=== PATIENT | male | born 1960 | race Caucasian/White ===

== ENCOUNTER 2024-12-11 13:19 | Outpatient (AMB) | payer OTHER, SELFPAY ==
--- NOTE | 2024-12-11 13:39 | A.OFFPC_ITS ---
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 Required: No Accompanied by: Self / Same As Patient Allergies No Known Drug Allergies Allergy (Verified 12/11/24 13:54) Unknown Medication List - Last Reconciled 12/11/24 by Dorothy Dupont MD aspirin (Adult Low Dose Aspirin) 81 mg PO DAILY diazepam 2 mg PO BEDTIME PRN losartan 25 mg PO BID multivitamin 0.5 tabs PO DAILY propranolol 20 mg PO BID Tobacco use date assessed: 12/11/24 Dental Screening Dental Screen Date: 12/11/24 Did you have a dental visit in the last 12 months?: Yes Did you have a dental problem in the last 6 months where you did not have access to dental care?: No PFSH Medical History (Updated 12/11/24 @ 14:29 by Dorothy Dupont MD) Low back pain TIA (transient ischemic attack) Heart murmur Hypertension Surgical History (Updated 12/11/24 @ 13:59 by DOT Aranda) No pertinent past surgical history Family History (Updated 12/11/24 @ 14:13 by Dorothy Dupont MD) Mother Heart problem Dementia Kidney cancer, primary, with metastasis from kidney to other site Father Heart problem Hip joint replacement by other means Myocardial infarct Social History (Updated 12/11/24 @ 14:15 by Dorothy Dupont MD) Housing: Apartment Alcohol intake: never Patient Tobacco Use Status: Former Tobacco user Tobacco use type: Cigarette Years Smoked: pack / week x20 years quit 1999. marijuana Substance Use Type: Marijuana service: No Current occupational status: retired Cognitive needs: No Hearing needs: No Vision needs: Yes Questionnaire PHQ-9 Over the last 2 weeks, how often have you been bothered by any of the following problems? 1. Little interest or pleasure in doing things: not at all 2. Feeling down, depressed, or hopeless: not at all 3. Trouble falling or staying asleep, or sleeping too much: not at all 4. Feeling tired or having little energy: not at all 5. Poor appetite or overeating: not at all 6. Feeling bad about yourself - or that you are a failure or have let yourself or your family down: not at all 7. Trouble concentrating on things, such as reading the newspaper or watching television: not at all 8. Moving or speaking so slowly that other people could have noticed. Or the opposite - being so fidgety or restless that you have been moving around a lot more than usual: not at all 9. Thoughts that you would be better off or of hurting yourself in some way: not at all Total score: 0 Source: Developed by Drs. Guzman Bronson, Arlin Carreno, Dimitri Sanz and colleagues, with an educational maricel from [facility]. Thrive Questionnaire Date Thrive assessed: 12/09/24 I am a: Patient What is your living situation today?: I have a steady place to live Within the past 12 months, did the food you bought not last and you didn't have the money to get more?: Sometimes True Within the past 12 months, did you worry whether your food would run out before you got money to buy more?: Sometimes True Do you have trouble paying for medicines?: Yes Do you have trouble getting transportation to medical appointments?: No Do you have trouble paying your heating and electricity bill?: No Do you have trouble taking care of your child, family member or friend?: I choose not to answer this question Do you have trouble with day-to-day activities such as bathing, preparing meals, shopping, managing finances, etc.?: No Are you currently unemployed and looking for a job?: No Are you interested in more education?: No Currently or been in a relationship where the following occur: No concerns reported THRIVE Score: 2 AUDIT C Alcohol Use Questionnaire (AUDIT-C) 1. How often do you have a drink containing alcohol?: Never 3. How often do you have six or more drinks on one occasion?: Never Total Score: 0 CHRISTEN-7 AMB Questionnaire CHRISTEN-7 Feeling nervous, anxious, or on edge: 1 = Several days Not being able to stop or control worryin = Several days Worrying too much about different things: 1 = Several days Trouble relaxin = Several days Being so restless that it is hard to sit still: 0 = Not at all Becoming easily annoyed or irritable: 1 = Several days Feeling afraid as if something awful might happen: 0 = Not at all Total CHRISTEN-7 score (0-4 normal; 5-9 mild; 10-14 moderate; 15-21 severe): 5 Source: Developed by Drs. Guzman Bronson, Arlin Carreno, Dimitri Sanz and colleagues, with an educational maricel from [facility]. Physical exam (Primary Care) Vital Signs: Last Vital Signs Temp 97.6 F 12/11/24 13:49 Pulse 64 12/11/24 13:49 Resp 16 12/11/24 13:49 BP 146/80 H 12/11/24 13:49 Pulse Ox 98 12/11/24 13:49 Oxygen Delivery Method Room Air 12/11/24 13:49 BMI result Body Mass Index 32.2 Tobacco/Smoking Status: Tobacco use Status Tobacco use date assessed 12/11/24 12/11/24 14:02 Patient Tobacco Use Status Former Tobacco user 12/11/24 14:15 Tobacco use type Cigarette 12/11/24 14:15 PHQ-9: PHQ-9 Score PHQ-9: Total score 0 12/11/24 14:19 Thrive Assessment: Date of Thrive Assessment Date Thrive assessed 12/09/24 12/11/24 13:39 Currently or been in a relationship where the following occur: No concerns reported Const General: alert; No acute distress Eyes Conjunctivae: conjunctivae normal Resp Auscultation: clear to auscultation bilaterally Cardio Rate: regular rate Rhythm: regular rhythm GI Inspection: Yes normal to inspection Extrem General: Yes normal to inspection and No edema Coding Level of Care Code New Pt Level 4 (43658) Diagnoses Hypertension I10 Heart murmur R01.1 Generalized anxiety disorder F41.1 Obesity (BMI 30.0-34.9) E66.811 Migraine G43.909 Colonoscopy refused Z53.20 Left ankle pain M25.572 Shoulder pain, left M25.512 Assessment & Plan Assessment & Plan (1) Hypertension: Code(s): I10 - Essential (primary) hypertension Category: Medical Plan: monitor the BP (2) Heart murmur: Code(s): R01.1 - Cardiac murmur, unspecified (3) Generalized anxiety disorder: Code(s): F41.1 - Generalized anxiety disorder Category: Medical (4) Obesity (BMI 30.0-34.9): Code(s): E66.811 - Obesity, class 1 Category: Medical (5) Migraine: Comment: visual Code(s): G43.909 - Migraine, unspecified, not intractable, without status migrainosus Category: Medical (6) Colonoscopy refused: Code(s): Z53.20 - Procedure and treatment not carried out because of patient's decision for unspecified reasons Category: Medical (7) Left ankle pain: Code(s): M25.572 - Pain in left ankle and joints of left foot Category: Medical (8) Shoulder pain, left: Code(s): M25.512 - Pain in left shoulder Category: Medical Plan History of Present Illness The patient is a 64-year-old male presenting with essential hypertension management. Despite adherence to Losartan 25 mg twice daily, his blood pressure readings remain elevated under stress. Notably, he lacks a home monitoring system. Obesity is a comorbidity, and he struggles with sleep disturbances, requiring occasional diazepam. A congenital heart murmur and mitral valve prolapse are present. He experienced TIA-like episodes in his 40s, possibly linked to migraines. Unresolved left ankle swelling and left shoulder numbness are present. No recent lumbar interventions for reported past hyperextended nerves. Hemorrhoids treated conservatively without colonoscopy. Health Maintenance - Regular monitoring of blood pressure at home suggested. - Discussion of colonoscopy for colorectal cancer screening, despite patient's reluctance. - Encouragement to maintain adequate hydration (6-8 glasses/day). - Update on flu and COVID vaccinations acknowledged. - Discussed potential benefits and side effects of shingles vaccines. Social History - Former occasional smoker, quit in 2021. - Current use of marijuana through smoking. - Vegetarian diet with occasional vitamin supplementation. - Engages in gardening; physically active when possible. - No alcohol consumption. - Reported elevated stress levels impacting sleep. Review of Systems - Cardiovascular: Reports history of mitral valve prolapse. - Musculoskeletal: Reports left ankle joint pain and swelling, shoulder numbness. - Neurological: Reports transient ischemic attack in the past, migraines with visual auras, and insomnia. - Gastrointestinal: Reports hemorrhoids. - Psychological: Experiences insomnia and negative thoughts impacting sleep. - Dermatological: Denies rash or skin abnormalities. Physical Exam General: Cooperative, healthy appearing, comfortable, no acute distress and well developed Orientation: Patient oriented x3 Limitations: No limitations Head: Normal to inspection Ears: Hearing grossly normal bilaterally Nose: Normal external nose present Face and sinus: Normal facial exam Eyes: Appearance normal, both eyes and all related structures Neck: Normal visual inspection and Yes full ROM Respiratory: Normal respiratory effort and able to speak in complete sentences. Clear to auscultation bilaterally Cardiovascular: Regular rate and rhythm. Normal S1 and S2, presence of a squeaky mitral valve prolapse GI: Normal to inspection. Soft to palpation and nontender Skin: No rashes or lesions noted Neuro: Patient oriented x3 Extremities: Swelling noted in the left ankle, painful to touch, with numbness from the shoulder down the arm on the left side. Results Plan The management of the patient's essential hypertension includes home monitoring and stress-reduction techniques, while maintaining his current Losartan regimen. An X-ray is advised for the left ankle swelling, with neurological assessment due to the left shoulder numbness. Physical therapy is recommended for musculoskeletal symptoms as availability permits. For insomnia, will consider reducing diazepam use in favor of non-pharmacological sleep aids. Colon cancer screening alternatives discussed given patient reluctance to undergo colonoscopy. Vaccination status maintained with discussions on shingles vaccine, and blood work ordered to evaluate for anemia. Patient was informed and verbally consented to the use of an ambient scribe for clinic note documentation during this visit. Discussion Notes I discussed with the patient the significance of maintaining controlled blood pressure and the potential benefits of home monitoring. I highlighted the importance of managing stress, which exacerbates his elevated blood pressures. We reviewed the plan for blood work and additional evaluations, such as an X-ray for the left ankle and neurological assessment for numbness. Proposed physical therapy should aid musculoskeletal issues. We examined the role of sleep aids and the risks of prolonged diazepam use. Addressed reluctance for colonoscopy, and explored alternative screening like Cologuard. Vaccination updates noted, with shingles immunization encouraged. Patient informed about potential anemia signs, and a complete blood count as part of necessary diagnostic steps. Reinforced recommendations for a healthy lifestyle and sufficient hydration. Patient Instructions - Monitor blood pressure at home regularly and record the readings. - Maintain current medication regimen with Losartan. - Schedule and attend a left ankle X-ray. - Consider physical therapy for shoulder numbness and musculoskeletal issues. - Explore non-pharmacological options for insomnia; limit diazepam use. - Stay current with vaccinations, particularly shingles. - Drink 6-8 glasses of water daily. - Follow a balanced, vegetarian diet and stay physically active when possible. - Attend follow-up visits as scheduled and seek medical advice for any unusual symptoms or concerns. Orders: Orders Complete Blood Count Auto Diff Today I10 - Essential (primary) hypertension Comprehensive Met. Panel Today I10 - Essential (primary) hypertension Thyroid Stimulating Hormone Today I10 - Essential (primary) hypertension PT Evaluation and Treatment Today M25.512 - Pain in left shoulder Free T4 (Free Thyroxine) Today I10 - Essential (primary) hypertension Lipid Panel Today E78.00 - Pure hypercholesterolemia, unspecified, I10 - Essential (primary) hypertension Vitamin B12 and Folate Today I10 - Essential (primary) hypertension Prostate Specific Antigen Scr Today I10 - Essential (primary) hypertension XR ankle LT min 3V Today M25.572 - Pain in left ankle and joints of left foot
[2024-12-11 13:49] VITALS: BP 146/80; PULSE 64; RESP 16; TEMP 36.4; O2SAT 98; BMI 32.2
== END 2024-12-11 14:38 | disposition home or self-care (01) ==
PROVIDERS: PCP Internal Medicine; Visit Provider Internal Medicine
DX: I10 Essential (primary) hypertension (principal); R01.1 Cardiac murmur, unspecified; E66.811 Obesity, class 1; Z68.32 Body mass index [BMI] 32.0-32.9, adult; F41.1 Generalized anxiety disorder; G43.909 Migraine, unspecified, not intractable, without status migrainosus; Z53.20 Procedure and treatment not carried out because of patient's decision for unspecified reasons; M25.572 Pain in left ankle and joints of left foot; M25.512 Pain in left shoulder

== ENCOUNTER → 2024-12-11 13:19 | Outpatient (BNVA) | payer OTHER, SELFPAY | PROVIDERS: PCP Internal Medicine; Visit Provider Internal Medicine | DX: I10 Essential (primary) hypertension (principal); R01.1 Cardiac murmur, unspecified; F41.1 Generalized anxiety disorder; E66.811 Obesity, class 1; G43.909 Migraine, unspecified, not intractable, without status migrainosus; M25.572 Pain in left ankle and joints of left foot; M25.512 Pain in left shoulder | CPT/HCPCS: 99202 ==

== ENCOUNTER 2025-01-29 12:51 | Outpatient (AMB) | payer OTHER, SELFPAY ==
[2025-01-29 13:01] VITALS: BP 122/82; PULSE 61; O2SAT 94; BMI 32.2
--- NOTE | 2025-01-29 13:01 | A.OFFPC_ITS ---
Vital Signs 01/29/25 13:01 Height 5 ft 6.54 in Weight 203 lb BMI 32.2 BP 122/82 Blood Pressure Location Lt brachial Position Sitting Pulse 61 Pulse Source Pulse Oximeter Pulse Oximetry (%) 94 Oxygen Delivery Method Room Air Intake Visit Reasons: pe Allergies No Known Drug Allergies Allergy (Verified 01/29/25 13:01) Unknown Medication List - Last Reconciled 01/29/25 by Dorothy Dupont MD aspirin (Adult Low Dose Aspirin) 81 mg PO DAILY diazepam 2 mg PO BEDTIME PRN losartan 25 mg PO BID multivitamin 0.5 tabs PO DAILY propranolol 20 mg PO BID Tobacco use date assessed: 12/11/24 Dental Screening Dental Screen Date: 01/29/25 Did you have a dental visit in the last 12 months?: Yes Did you have a dental problem in the last 6 months where you did not have access to dental care?: No Was dental information given to patient?: Patient has dentist COUNTS INCLUDE 234 BEDS AT THE [facility] Medical History (Updated 01/29/25 @ 13:46 by Dorothy Dupont MD) Low back pain TIA (transient ischemic attack) Heart murmur Hypertension Surgical History (Updated 12/11/24 @ 13:59 by DOT Aranda) No pertinent past surgical history Family History (Updated 01/29/25 @ 13:02 by Gail Elizabeth CMA) Mother Heart problem Dementia Kidney cancer, primary, with metastasis from kidney to other site Father Heart problem Hip joint replacement by other means Myocardial infarct Social History (Updated 12/11/24 @ 14:15 by Dorothy Dupont MD) Housing: Apartment Alcohol intake: never Patient Tobacco Use Status: Former Tobacco user Tobacco use type: Cigarette Years Smoked: pack / week x20 years quit 1999. marijuana e-Cigarette/Vaping Use: Never Used Second Hand Smoke Exposure: Yes Substance Use Type: Marijuana service: No Current occupational status: retired Cognitive needs: No Hearing needs: No Vision needs: Yes Questionnaire PHQ-9 Over the last 2 weeks, how often have you been bothered by any of the following problems? 1. Little interest or pleasure in doing things: more than half the days 2. Feeling down, depressed, or hopeless: more than half the days 3. Trouble falling or staying asleep, or sleeping too much: several days 4. Feeling tired or having little energy: not at all 5. Poor appetite or overeating: not at all 6. Feeling bad about yourself - or that you are a failure or have let yourself or your family down: nearly every day 7. Trouble concentrating on things, such as reading the newspaper or watching television: not at all 8. Moving or speaking so slowly that other people could have noticed. Or the opposite - being so fidgety or restless that you have been moving around a lot more than usual: not at all 9. Thoughts that you would be better off or of hurting yourself in some way: not at all Total score: 8 Depression Screening Interpretation: Positive Depression Screening Done: Yes 34545 - PHQ-9 Billing: Yes Source: Developed by Drs. Guzman Bronson, Arlin Carreno, Dimitri Sanz and colleagues, with an educational maricel from [employer] Thrive Questionnaire Date Thrive assessed: 12/09/24 AUDIT C Alcohol Use Questionnaire (AUDIT-C) 1. How often do you have a drink containing alcohol?: Never 3. How often do you have six or more drinks on one occasion?: Never Total Score: 0 CHRISTEN-7 AMB Questionnaire CHRISTEN-7 Date CHRISTEN - 7 assessed: 01/29/25 Feeling nervous, anxious, or on edge: 1 = Several days Not being able to stop or control worryin = Several days Worrying too much about different things: 0 = Not at all Trouble relaxin = Not at all Being so restless that it is hard to sit still: 0 = Not at all Becoming easily annoyed or irritable: 0 = Not at all Feeling afraid as if something awful might happen: 0 = Not at all Total CHRISTEN-7 score (0-4 normal; 5-9 mild; 10-14 moderate; 15-21 severe): 2 Source: Developed by Drs. Guzman Bronson, Arlin Carreno, Dimitri Sanz and colleagues, with an educational maricel from [employer] CHRISTEN-7 Assessment Billing CHRISTEN-7 Assessment Tool: CHRISTEN-7 Assessment 64222 Review of Systems Const Denies poor appetite and Denies weakness Eyes Denies no additional complaints ENT Reports Normal hearing present, Denies dizziness, Denies nasal congestion, Denies tinnitus and Denies sore throat Card Denies chest pain, Denies syncope, Denies rapid heart rate and Denies dyspnea Resp Denies cough and Denies dyspnea GI Denies change in stool character, Reports constipation, Denies diarrhea, Denies nausea and Denies vomiting Denies dysuria and Denies urinary frequency Neuro Reports Normal hearing present, Denies confusion, Denies dizziness, Denies syncope and Denies weakness Psych Denies confusion Physical exam (Primary Care) Vital Signs: Last Vital Signs Pulse 61 01/29/25 13:01 BP 122/82 01/29/25 13:01 Pulse Ox 94 01/29/25 13:01 Oxygen Delivery Method Room Air 01/29/25 13:01 BMI result Body Mass Index 32.2 Tobacco/Smoking Status: Tobacco use Status Tobacco use date assessed 12/11/24 01/29/25 13:02 Patient Tobacco Use Status Former Tobacco user 01/29/25 13:02 Tobacco use type Cigarette 01/29/25 13:02 e-Cigarette/Vaping Use Never Used 01/29/25 13:02 PHQ-9: PHQ-9 Score PHQ-9: Total score 8 01/29/25 13:23 Depression Screening Interpretation: Positive Thrive Assessment: Date of Thrive Assessment Date Thrive assessed 12/09/24 01/29/25 13:02 Const General: alert and awake; No confusion Orientation/consciousness: No confusion HENMT Head: Yes normocephalic Ears: external ears normal and TM's normal bilaterally Face and sinus: Yes normal facial exam Mouth: moist mucous membranes Throat: Yes tonsils normal Eyes Conjunctivae: conjunctivae normal Pupils: Equal, round and reactive pupils present and Pupil accommodation reflex normal Direct Ophthalmoscopy: normal light reflex Neck Neck: No lymphadenopathy Thyroid: Thyroid normal Chest Chest palpation & inspection: normal inspection of the chest Resp Effort & Inspection: normal respiratory effort and no audible wheezes Auscultation: clear to auscultation bilaterally, no crackles, no wheezes and lung sounds not diminished Cardio Rate: regular rate Rhythm: regular rhythm Peripheral pulses: radial pulses present and dorsalis pedis present GI Other: guaiac negative prostate N hemorrhoids present external; Palpation (GI): no masses Auscultation: normal bowel sounds and normoactive bowel sounds Male General Exam: Yes normal external exam Skin General skin exam: no rashes or lesions noted Rashes: no rashes Neuro General: deep tendon reflexes 2+ bilaterally and No confusion Cranial nerves: Yes Equal, round and reactive pupils present, Yes Midline tongue present, Yes Normal hearing present and Yes Ability to bilaterally elevate shoulders present Cognition (Neuro): normal cognition Gait exam (Neuro): Normal gait present Motor exam (neuro): 5/5 motor strength present throughout Deep tendon reflexes (DTR's): Right brachioradialis reflex intensity grade: 2+, Left brachioradialis reflex intensity grade: 2+, Right patellar reflex intensity grade: 2+ and Left patellar reflex intensity grade: 2+ Extrem General: No edema Coding Level of Care Code Est Pt Prev Care 40-64y(49123) Diagnoses Annual physical exam Z00.00 Obesity (BMI 30.0-34.9) E66.811 Hypertension I10 Generalized anxiety disorder F41.1 Anemia D64.9 Colon cancer screening Z12.11 Left groin pain R10.32 Additional Codes CHRISTEN-7 Assessment Billing - CHRISTEN-7 Assessment Tool: CHRISTEN-7 Assessment 62829 ([id number]) PHQ-9 - 84134 - PHQ-9 Billing: Yes ([id number]) Assessment & Plan Assessment & Plan (1) Annual physical exam: Code(s): Z00.00 - Encounter for general adult medical examination without abnormal findings Category: Medical Plan: Patient is advised to eat healthy, keep well hydrated, keep active and have adequate sleep. (2) Obesity (BMI 30.0-34.9): Code(s): E66.811 - Obesity, class 1 Category: Medical Plan: Diet and exercise (3) Hypertension: Code(s): I10 - Essential (primary) hypertension Category: Medical Plan: Continue with blood pressure medication. Decrease salt intake and exercise on losartan 25 mg twice a day and propranolol 20 mg twice a day (4) Generalized anxiety disorder: Code(s): F41.1 - Generalized anxiety disorder Category: Medical Plan: Continue with present medication as needed (5) Anemia: Code(s): D64.9 - Anemia, unspecified Category: Medical (6) Colon cancer screening: Code(s): Z12.11 - Encounter for screening for malignant neoplasm of colon Category: Medical (7) Left groin pain: Code(s): R10.32 - Left lower quadrant pain Category: Medical Plan History of Present Illness The patient is a 64-year-old male presenting for a physical examination and management of chronic conditions. He has documented essential hypertension, which he manages with losartan and propranolol. The patient occasionally experiences anxiety and manages it with diazepam and shows compliance with his ongoing medication regime. He reported occasional heartburn and is knowledgeable about the dietary triggers that cause it. Recent laboratory findings indicated anemia with a hemoglobin level of 12.5 g/dL, though his other bloodwork was within normal limits. He suspects his serum glucose was elevated due to recent food intake. The patient voiced hearing difficulties, experiencing sound overlapping in noisy settings, yet this does not significantly impede daily activities. He acknowledges past bronchitis, but the symptoms have resolved. He remains physically active in the summer months, which helps somewhat with weight control. Despite understanding its implications, the patient prefers not to pursue a colonoscopy at this time but is open to non-invasive alternatives for colon cancer screening. Health Maintenance - Continue losartan and propranolol for hypertension. - Perform follow-up bloodwork, including monitoring hemoglobin for anemia and a fasting blood glucose test. - Suggested usage of Cologuard for colorectal cancer screening due to non- compliance with colonoscopy. - Discussed potential benefits of dietary modifications and summer physical activity for weight management. - Recommended routine eye exams every couple of years. - Vaccinations: Tetanus up-to-date, planned shingles vaccination. - Encouraged heartburn management by avoiding late-night food consumption and using Tums as needed, monitoring frequency due to esophageal concerns. Social History - Does not consume alcohol or tobacco. - Physical activity increases during the summer. - Actively manages diet to control weight, but reports obesity. - Experiences hearing difficulties in loud settings but infrequently dines out. - Occasionally requires medication to manage anxiety. Review of Systems - Constitutional: Denies fever, dizziness, and vomiting. - Eyes: No apparent issues reported, delayed recent exam. - Cardiovascular: Denies chest pain, good exercise tolerance including stair climbing. - Respiratory: Previous bronchitis resolved. - Gastrointestinal: Reports heartburn; denies swallowing problems, bowel movements regular and untroubled. - Genitourinary: Reports waking once at night to urinate. - Musculoskeletal: Reports past groin strain. - Neurological: Denies headaches or dizziness. - Psychiatric: General anxiety managed with medications. - Hematologic/lymphatic: Reports diagnosis of anemia. - Ears, Nose, Mouth, Throat: Hearing difficulty in noisy environments; excess earwax noted. Physical Exam General: Cooperative, healthy appearing, comfortable, no acute distress and well developed Orientation: Patient oriented x3 Limitations: No limitations Head: Normal to inspection Ears: Hearing grossly normal bilaterally, but patient reports difficulty hearing in noisy environments Nose: Normal external nose present Face and sinus: Normal facial exam Eyes: Appearance normal, both eyes and all related structures Neck: Normal visual inspection and Yes full ROM Respiratory: Normal respiratory effort and able to speak in complete sentences. Clear to auscultation bilaterally Cardiovascular: Regular rate and rhythm. Normal S1 and S2 GI: Normal to inspection. Soft to palpation and nontender Skin: No rashes or lesions noted Neuro: Patient oriented x3 Extremities: Normal to inspection, but patient reports groin pain on the left side, possibly related to a past injury. Results - Labs: Anemia with hemoglobin 12.5 g/dL. High blood glucose, attributed to recent food intake. Platelet count and kidney/liver function tests within normal limits. - Tests and Diagnostics: Ankle X-ray in December 29 showed no osseous abnormalities. Plan The patient will maintain the current antihypertensive regimen with losartan and propranolol to manage essential hypertension, ensuring proper medication adherence and refill timely. Addressing anemia is a priority; follow-up bloodwork to monitor hemoglobin and iron levels, alongside a fasting blood glucose test, are scheduled. Cologuard will be used as an alternative to colonoscopy for colorectal cancer screening. Emphasis is placed on managing heartburn by limiting late afternoons consumption of trigger foods, with continued use of Tums as necessary. The patient is apprised of the benefits and upcoming plans for receiving a shingles vaccination. A referral to physical therapy is issued to improve groin strain recovery with appropriate exercises. Encouraging summer physical activity will assist in weight management. Patient was informed and verbally consented to the use of an ambient scribe for clinic note documentation during this visit. Discussion Notes The meeting covered effective management of hypertension through continued antihypertensive plan adherence. I outlined the importance of diagnosing and addressing anemia, and the role of repeat laboratory tests was explained, emphasizing accuracy of a fasting blood glucose test. Due to the patient's hesitance around colonoscopy, I presented Cologuard as a viable non-invasive screening method for colorectal cancer, which he accepted. Discussions around lifestyle adjustments, such as managing heartburn triggers, aligned with preventive care measures included the shingles vaccination plan. I advised the patient about the value of physical therapy for addressing his muscle strain history and clarified the next steps, including [facility] prescription planning. Patient Instructions - Continue losartan and propranolol as directed. 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 - Schedule fasting blood work within a month. - Use Cologuard when it arrives for colon cancer screening. - Avoid late-night trigger foods to help manage heartburn. - Follow up on physical therapy referral for groin exercises. - Plan for your shingles vaccination. Orders: Orders Complete Blood Count Auto Diff 4 Weeks D64.9 - Anemia, unspecified IRON PROFILE 4 Weeks D64.9 - Anemia, unspecified Comprehensive Met. Panel 4 Weeks D64.9 - Anemia, unspecified PT Evaluation and Treatment Today R10.32 - Left lower quadrant pain Ferritin 4 Weeks D64.9 - Anemia, unspecified Reticulocyte Count 4 Weeks D64.9 - Anemia, unspecified Hemoglobin A1c 4 Weeks D64.9 - Anemia, unspecified Lipid Panel 1 Month E78.00 - Pure hypercholesterolemia, unspecified, I10 - Essential (primary) hypertension Referrals Cologuard Test Z12.11 - Encounter for screening for malignant neoplasm of colon, Z12.12 - Encounter for screening for malignant neoplasm of rectum Medications: New losartan 25 mg PO BID 180 tabs 2RF D64.9 - Anemia, unspecified
== END 2025-01-29 13:50 | disposition home or self-care (01) ==
LOC: HO.HMCH 12:51
PROVIDERS: PCP Internal Medicine; Visit Provider Internal Medicine
DX: Z00.00 Encounter for general adult medical examination without abnormal findings (principal); E66.811 Obesity, class 1; Z68.32 Body mass index [BMI] 32.0-32.9, adult; I10 Essential (primary) hypertension; F41.1 Generalized anxiety disorder; D64.9 Anemia, unspecified; Z12.11 Encounter for screening for malignant neoplasm of colon; R10.32 Left lower quadrant pain

== ENCOUNTER → 2025-01-29 12:51 | Outpatient (BNVA) | payer OTHER, SELFPAY | PROVIDERS: PCP Internal Medicine; Visit Provider Internal Medicine | DX: Z00.00 Encounter for general adult medical examination without abnormal findings (principal); E66.811 Obesity, class 1; Z68.32 Body mass index [BMI] 32.0-32.9, adult; I10 Essential (primary) hypertension; F41.1 Generalized anxiety disorder; D64.9 Anemia, unspecified; R10.32 Left lower quadrant pain; Z79.899 Other long term (current) drug therapy | CPT/HCPCS: 96127; 99396 ==

== ENCOUNTER 2025-08-02 10:47 | Outpatient (AMB) | payer OTHER, SELFPAY ==
[2025-08-02 10:51] VITALS: BP 138/84; PULSE 66; TEMP 36.2; O2SAT 97; BMI 32.6
--- NOTE | 2025-08-02 10:51 | MHC.PC.OV ---
Vital Signs 08/02/25 10:51 Height 5 ft 6.54 in Weight 205 lb 8 oz BMI 32.6 BP 138/84 Blood Pressure Location Lt brachial Position Sitting Pulse 66 Pulse Source Pulse Oximeter Temp 97.1 F Temp Source Temporal Artery Scan Pulse Oximetry (%) 97 Oxygen Delivery Method Room Air Intake Visit Reasons: 6 mnth f/u Allergies No Known Drug Allergies Allergy (Verified 08/02/25 10:54) Unknown Tobacco use date assessed: 08/02/25 Fall risk assessment: No Falls in past year Last assessed Fall Risk: 08/02/25 Dental Screening Dental Screen Date: 08/02/25 Did you have a dental visit in the last 12 months?: Yes Did you have a dental problem in the last 6 months where you did not have access to dental care?: No Was dental information given to patient?: Patient has dentist [facility] Medical History Low back pain TIA (transient ischemic attack) Heart murmur Hypertension Surgical History No pertinent past surgical history Family History Mother Heart problem Dementia Kidney cancer, primary, with metastasis from kidney to other site Father Heart problem Hip joint replacement by other means Myocardial infarct Social History Housing: Apartment Alcohol intake: never Patient Tobacco Use Status: Former Tobacco user Tobacco use type: Cigarette Years Smoked: pack / week x20 years quit 1999. marijuana e-Cigarette/Vaping Use: Never Used Second Hand Smoke Exposure: Yes Substance Use Type: Marijuana service: No Current occupational status: retired Cognitive needs: No Hearing needs: No Vision needs: Yes Questionnaire PHQ-9 Over the last 2 weeks, how often have you been bothered by any of the following problems? 1. Little interest or pleasure in doing things: several days 2. Feeling down, depressed, or hopeless: several days 3. Trouble falling or staying asleep, or sleeping too much: several days 4. Feeling tired or having little energy: several days 5. Poor appetite or overeating: several days 6. Feeling bad about yourself - or that you are a failure or have let yourself or your family down: nearly every day 7. Trouble concentrating on things, such as reading the newspaper or watching television: not at all 8. Moving or speaking so slowly that other people could have noticed. Or the opposite - being so fidgety or restless that you have been moving around a lot more than usual: several days 9. Thoughts that you would be better off or of hurting yourself in some way: not at all Total score: 9 Source: Developed by Drs. Guzman Bronson, Arlin Carreno, Dimitri Sanz and colleagues, with an educational maricel from [employer]. Thrive Questionnaire Date Thrive assessed: 12/09/24 I am a: Patient What is your living situation today?: I have a steady place to live Within the past 12 months, did the food you bought not last and you didn't have the money to get more?: Sometimes True Within the past 12 months, did you worry whether your food would run out before you got money to buy more?: Sometimes True Do you have trouble paying for medicines?: Yes Do you have trouble getting transportation to medical appointments?: No Do you have trouble paying your heating and electricity bill?: No Do you have trouble taking care of your child, family member or friend?: I choose not to answer this question Do you have trouble with day-to-day activities such as bathing, preparing meals, shopping, managing finances, etc.?: No Are you currently unemployed and looking for a job?: No Are you interested in more education?: No Currently or been in a relationship where the following occur: No concerns reported THRIVE Score: 2 AUDIT C Alcohol Use Questionnaire (AUDIT-C) 1. How often do you have a drink containing alcohol?: Never 3. How often do you have six or more drinks on one occasion?: Never Total Score: 0 CHRISTEN-7 AMB Questionnaire CHRISTEN-7 Date CHRISTEN - 7 assessed: 01/29/25 Feeling nervous, anxious, or on edge: 1 = Several days Not being able to stop or control worryin = Several days Worrying too much about different things: 0 = Not at all Trouble relaxin = Not at all Being so restless that it is hard to sit still: 0 = Not at all Becoming easily annoyed or irritable: 0 = Not at all Feeling afraid as if something awful might happen: 0 = Not at all Total CHRISTEN-7 score (0-4 normal; 5-9 mild; 10-14 moderate; 15-21 severe): 2 Source: Developed by Drs. Guzman Bronson, Arlin Carreno, Dimitri Sanz and colleagues, with an educational maricel from [employer]. Physical exam (Primary Care) Vital Signs: Last Vital Signs Temp 97.1 F 08/02/25 10:51 Pulse 66 08/02/25 10:51 BP 138/84 08/02/25 10:51 Pulse Ox 97 08/02/25 10:51 Oxygen Delivery Method Room Air 08/02/25 10:51 BMI result Body Mass Index 32.6 Tobacco/Smoking Status: Tobacco use Status Tobacco use date assessed 08/02/25 08/02/25 10:55 Patient Tobacco Use Status Former Tobacco user 08/02/25 10:55 Tobacco use type Cigarette 08/02/25 10:55 e-Cigarette/Vaping Use Never Used 08/02/25 10:55 PHQ-9: PHQ-9 Score PHQ-9: Total score 9 08/02/25 11:22 Thrive Assessment: Date of Thrive Assessment Date Thrive assessed 12/09/24 08/02/25 10:55 Currently or been in a relationship where the following occur: No concerns reported Const General: alert; No acute distress Eyes Conjunctivae: conjunctivae normal Resp Auscultation: clear to auscultation bilaterally Cardio Rate: regular rate Rhythm: regular rhythm GI Inspection: Yes normal to inspection Extrem General: Yes normal to inspection and No edema Coding Level of Care Code Est Pt Level 4 (94815) Complex EM visit Add On G2211 Diagnoses Hypertension I10 Obesity (BMI 30.0-34.9) E66.811 Positive colorectal cancer screening using Cologuard test R19.5 Impaired glucose tolerance R73.02 Anemia D64.9 Assessment & Plan Assessment & Plan (1) Hypertension: Code(s): I10 - Essential (primary) hypertension Category: Medical Plan: Continue with blood pressure medication. Decrease salt intake and exercise patient on losartan 25 mg once a day propranolol 20 mg twice a day (2) Obesity (BMI 30.0-34.9): Code(s): E66.811 - Obesity, class 1 Category: Medical Plan: Diet and exercise (3) Positive colorectal cancer screening using Cologuard test: Code(s): R19.5 - Other fecal abnormalities Category: Medical Plan: Patient is reminded about colon cancer screening (4) Impaired glucose tolerance: Code(s): R73.02 - Impaired glucose tolerance (oral) Category: Medical Plan: Decrease the amount of carbohydrate intake, pasta, bread, rice and potatoes are all sugar and that is aside from all the sweet stuff, remember that fruits are good but they are Sweet also. (5) Anemia: Code(s): D64.9 - Anemia, unspecified Category: Medical Plan: Continue to follow-up Plan History of Present Illness The patient is a 65-year-old male presenting for a follow-up visit. He has a history of essential hypertension managed with losartan 25 mg daily and propranolol 20 mg twice daily, as well as generalized anxiety disorder. Colorectal cancer screening with a Cologuard test in April 2025 was positive. He has a pending appointment with a field organizer for follow-up. Blood work from December 2024 revealed anemia with a hemoglobin of 12.5 g/dL and hematocrit of 36.9%. The patient reports he started taking iron pills and now attributes past episodes of extreme fatigue, which he previously thought could be a heart problem, to the anemia. His labs also showed an elevated glucose of 115 mg/dL, though he notes he may have had a fruit shake before the test. Other results, including electrolytes, liver function, B12, folic acid, thyroid function, and PSA, were normal. The patient experienced a recent episode of sciatica that made driving difficult and prevented him from coming in for blood work. He also has a history of neck pain, which had been treated with physical therapy, but has significantly improved since he started using an ergonomic chair. Health Maintenance A new lab requisition will be provided for fasting blood work, which he can have done at [facility]. The patient was advised to get his updated COVID-19 vaccine. He was instructed on how to sign up for the patient portal for easier communication regarding lab results. It was noted that the pneumococcal vaccine will be discussed at his next visit, as he will be turning 66. Social History - Activity: Patient uses a computer and reports his neck pain was related to poor posture while sitting. Review of Systems - Constitutional: Reports feeling quite good at the moment and denies any serious problems. - Reports a history of severe fatigue, which he now believes was due to anemia. - Gastrointestinal: Reports good bowel movements. - Denies black, maroon, or red stools, but notes stool consistency changes with diet. - Musculoskeletal: Reports history of neck pain that is now much better. - Reports a history of sciatica that impaired his ability to drive. - Psychiatric: Acknowledges anxiety, for which he takes diazepam as needed approximately once every two weeks. Physical Exam Results - Labs (December 2024): - Hemoglobin: 12.5 g/dL with hematocrit of 36.9% - Glucose: 115 mg/dL - Electrolytes (sodium, potassium), liver function tests, vitamin B12, folic acid, thyroid function, and PSA were normal. - White blood cell count and platelets were normal. - Tests and Diagnostics: - Cologuard (April 2025): Positive. Plan Patient was informed and verbally consented to the use of an ambient scribe for clinic note documentation during this visit. 1. Anemia Anemia was noted on labs from December 2024 (Hgb 12.5). This finding is particularly concerning in the context of his positive Cologuard test. The patient reports he has started taking iron pills on his own. Plan is to obtain repeat fasting blood work to follow up on his blood count. 2. Positive Cologuard Test The patient had a positive Cologuard test in April 2025. He was reminded of the importance of colon cancer screening and follow-up, especially given his concomitant anemia. He is pending an appointment with gastroenterology for further evaluation. 3. Impaired Fasting Glucose Recent labs showed an elevated glucose of 115. The patient stated this may not have been a fasting sample. Plan is to recheck a fasting glucose with his upcoming blood work. 4. Essential Hypertension Patient will continue his current regimen of losartan 25 mg once a day and propranolol 20 mg twice a day. Continuation of diet and exercise was encouraged. He confirms he has enough of his blood pressure medications. 5. Generalized Anxiety Disorder The patient reports using a microdose of diazepam as needed, approximately once every two weeks, when his anxiety is significant. A refill for his diazepam will be provided. Discussion Notes I reviewed the patient's recent lab work from December 2024 and the positive Cologuard test from April 2025. I emphasized that the combination of his anemia and the positive Cologuard test is concerning and reinforces the need to follow up with his gastroenterology appointment. We discussed the patient's difficulty in obtaining his follow-up blood work, and I will provide a new requisition that he can use at a more convenient location. The planned blood work will be done fasting to re-evaluate his glucose level and to check on his blood count. I will send a refill for his diazepam for anxiety. We also reviewed his vaccination status, and I advised him to get the updated COVID-19 vaccine, and noted we will discuss the pneumonia vaccine next year. I advised him to sign up for the patient portal for future communication. Patient Instructions - Get your blood tests done. - You will need to fast (do not eat or drink anything except water) before the test. - I am sending a refill of your diazepam medication for anxiety to your pharmacy. - Continue taking your blood pressure medications (losartan and propranolol) as prescribed. - It is very important to follow up with the GI (stomach) specialist for your positive Cologuard test. - Get your updated COVID-19 vaccine. - When you check out, ask the patient coordinator front desk staff how to sign up for the online patient portal so you can send messages to me. Medications: New diazepam 2 mg PO BEDTIME PRN 30 tabs 0RF anxiety
== END 2025-08-02 11:34 | disposition home or self-care (01) ==
LOC: HO.HMCH 10:48
PROVIDERS: PCP Internal Medicine; Visit Provider Internal Medicine
DX: I10 Essential (primary) hypertension (principal); E66.811 Obesity, class 1; Z68.32 Body mass index [BMI] 32.0-32.9, adult; R19.5 Other fecal abnormalities; R73.02 Impaired glucose tolerance (oral); D64.9 Anemia, unspecified

== ENCOUNTER → 2025-08-02 10:47 | Outpatient (BNVA) | payer OTHER, SELFPAY | PROVIDERS: PCP Internal Medicine; Visit Provider Internal Medicine | DX: I10 Essential (primary) hypertension (principal); E66.811 Obesity, class 1; R19.5 Other fecal abnormalities; R73.02 Impaired glucose tolerance (oral); D64.9 Anemia, unspecified; F41.1 Generalized anxiety disorder | CPT/HCPCS: 99212 ==

== ENCOUNTER 2025-09-07 08:16 | Outpatient (AMB) | payer OTHER, SELFPAY ==
[2025-09-07 08:27] VITALS: BP 147/79; PULSE 79; BMI 32.6
--- NOTE | 2025-09-07 08:27 | MHC.OFFVIS ---
Vital Signs 09/07/25 08:27 Height 5 ft 6.5 in Weight 205 lb BMI 32.6 BP 147/79 H Blood Pressure Location Lt brachial Position Sitting Pulse 79 Intake Visit Reasons: colo screening +cologuard Intake Note: Patient new consult for 1st pre Colonoscopy screening/Cologuard positive Patient cc: hx of bloody hemorrhoids on and off, also patient is been having fecal incontinence, denies any other GI issues. Set Up Worker Required: No Accompanied by: Self / Same As Patient Allergies No Known Drug Allergies Allergy (Verified 09/07/25 08:26) Unknown Medication List - Last Reconciled 09/07/25 by Elizabeth Arreola CNP aspirin (Adult Low Dose Aspirin) 81 mg PO DAILY bisacodyl 20 mg (4 x 5 mg) PO ONCE diazepam 2 mg PO BEDTIME PRN ferrous sulfate 325 mg PO DAILY losartan 25 mg PO DAILY multivit with min-folic acid 200 mcg (Multivitamin Gummies) tabs PO DAILY peg 3350-electrolytes 236-22.74-6.74 -5.86 gram 240 mL PO ONCE propranolol 20 mg PO BID simethicone (Gas Relief (simethicone)) 500 mg (4 x 125 mg) PO ONCE HPI HPI colo screening +cologuard: Details: Patient is a 65-year-old male with PMH of CHRISTEN, hypertension. Referred by PCP for pre colonoscopy screening following positive Cologuard. Positive Cologuard collected on 04-22-2025; colonoscopy has never been performed. Patient reports a history of hemorrhoids with intermittent dark red rectal bleeding, mainly with wiping, occurring for years. States bowel habits are twice daily but notes incomplete evacuation in the mornings, often requiring 2?3 attempts over 10-minute intervals, a pattern developing over the past 1?2 years. Stools vary in consistency, with episodes of both hard and soft stools, affected by diet, but no use of laxatives or stool softeners. Denies abdominal pain, nausea, vomiting, or coffee-ground stool. Reports no feccal incontinence but rare stress urinary incontinence (?a little pee?). Reports occasional heartburn, about once weekly, triggered by diet (e.g., cheese, acidic foods), responsive to TUMS with good effect, no regurgitation or dysphagia. Appetite remains good and weight is stable near low 200s, without unexplained weight loss. Notes mild normocytic anemia on 12/2024 labs, taking iron supplements independently since April, though iron deficiency not confirmed; fasting labs pending. Denies prior GI cancer, but family history notable for maternal kidney cancer. Comorbid conditions include controlled palpitations/skipped beats on propranolol, and hypertension managed with losartan. Anxiety regarding upcoming procedure and prep expressed. Patient denies: fever/chills, n/v, appetite changes, unintentional wt loss. Social hx: -denies ETOH use -smoker marijuana daily, denies other recreational drug use -former smoker, cessation 2 years. - family hx as below -denies personal hx of CA -tolerated anesthesia in the past without difficulty [facility] Medical History (Updated 09/07/25 @ 09:22 by Elizabeth Arreola CNP) Constipation Acid reflux Low back pain TIA (transient ischemic attack) Heart murmur Hypertension Surgical History No pertinent past surgical history Family History Mother Heart problem Dementia Kidney cancer, primary, with metastasis from kidney to other site Father Heart problem Hip joint replacement by other means Myocardial infarct Social History Housing: Apartment Alcohol intake: never Patient Tobacco Use Status: Former Tobacco user Tobacco use type: Cigarette Years Smoked: pack / week x20 years quit 1999. marijuana e-Cigarette/Vaping Use: Never Used Second Hand Smoke Exposure: Yes Substance Use Type: Marijuana service: No Current occupational status: retired Cognitive needs: No Hearing needs: No Vision needs: Yes Review of Systems Const Reports as per HPI ENT Reports as per HPI Card Reports as per HPI Resp Reports as per HPI GI Reports as per HPI Reports as per HPI Physical Exam Vital Signs: Last Vital Signs Pulse 79 09/07/25 08:27 BP 147/79 H 09/07/25 08:27 BMI result Body Mass Index 32.6 Const General: healthy appearing, no acute distress and well developed Nutritional Appearance: average body habitus Orientation/consciousness: patient oriented x3 HEENT Head: Yes normal to inspection, Yes normocephalic and Yes atraumatic Face and sinus: Yes normal facial exam Eyes General: appearance normal, both eyes and all related structures Neck Neck: Yes normal visual inspection Resp Effort & Inspection: normal respiratory effort, able to speak in complete sentences, no tracheal deviation and symmetric chest movement Cardio Jugular venous distension: no JVD Rate: regular rate Rhythm: regular rhythm Heart sounds: S1 normal heart sound present, S2 normal heart sound present, no gallops and no murmurs GI Inspection: Yes normal to inspection, No distended, Yes obesity and Yes other (diastasis recti ) Palpation (GI): Soft to palpation, not firm, nontender and No hepatosplenomegaly present Auscultation: normal bowel sounds Neuro General: patient oriented x3 Gait exam (Neuro): Normal gait present Psych Appearance: grossly normal Mental Status: mental status grossly normal Speech and movement: Normal speech and movement present Affect: normal affect Attitude: cooperative Thought process: Normal thought process present Thought content: Normal thought content present Insight: Good insight present (Psych) Judgement: Good judgement present (Psych) Assessment & Plan Assessment & Plan (1) Positive colorectal cancer screening using Cologuard test: Comment: Collected 04/22/25 Code(s): R19.5 - Other fecal abnormalities Category: Medical Plan: High-risk screen (positive Cologuard), presence of symptoms and anemia. Patient expressed significant anxiety around procedure and outcomes; procedure sedation, indications, and steps reviewed in detail for reassurance. Additional Testing: - Diagnostic colonoscopy scheduled (expedited, target by ) - EGD to be performed concurrently, to assess for upper GI bleeding/anemia source and reflux-related changes - Repeat CBC with index iron studies (ferritin, iron, TIBC) after fasting, per PCP order Medication Management: - Stop aspirin 7 days prior to procedure - Hold iron supplement as of current instruction; clarify dose, form, and discontinue prior to procedure if possible - Continue losartan, propranolol, diazepam, and multivitamin as prescribed Lifestyle Recommendations: - Colonoscopy/EGD bowel prep: GoLYTELY standard prep with additional 2 senna tabs nightly x5d prior, avoid red/blue/purple dyes, clear liquids day before, NPO x4h pre-op - Low-residual diet for 2 days prior Follow-Up: - GI follow-up post-procedure for pathology results and further management - Await scheduling call for procedure and confirm transportation; nurse will review prep week prio (2) Anemia: Code(s): D64.9 - Anemia, unspecified Category: Medical Qualifiers: Anemia type: unspecified type Qualified Code(s): D64.9 - Anemia, unspecified Plan: Documented on labs, not yet fully characterized Additional Testing: - Fasting CBC and iron studies pending Medication Management: - clarify dose and determine need at next visit Lifestyle Recommendations: - Continue multivitamin (gummy), assess content of iron Follow-Up: - Will review labs once available and adjust plan (3) Acid reflux: Code(s): K21.9 - Gastro-esophageal reflux disease without esophagitis Category: Medical Qualifiers: Esophagitis presence: esophagitis presence not specified Qualified Code(s): K21.9 - Gastro-esophageal reflux disease without esophagitis Plan: Intermittent heartburn, diet-related, responsive to antacids Additional Testing: - EGD to be performed concurrently with colonoscopy to assess for esophageal/gastric pathology Medication Management: - Continue TUMS prn for symptom relief - No chronic acid suppression indicated at this time Lifestyle Recommendations: - Avoid dietary triggers (cheese, acidic foods) - Elevate head of bed if nocturnal symptoms - Monitor for increased frequency/severity of symptoms Follow-Up: - Reassess after EGD and at post-procedure visit (4) Constipation: Code(s): K59.00 - Constipation, unspecified Category: Medical Qualifiers: Constipation type: unspecified constipation type Qualified Code(s): K59.00 - Constipation, unspecified Plan: Chronic intermittent rectal bleeding, variable stool consistency, incomplete evac Additional Testing: - No further work-up indicated at this time unless colonoscopy suggests alternative etiology Medication Management: - None added currently; will reassess following endoscopic findings Lifestyle Recommendations: - Maintain high fluid intake and fiber intake (consistent with dietary tolerability and pre-procedure instructions) - Continue avoidance/limitation of trigger foods causing reflux or stool changes as identified Follow-Up: - Reinforce at post-procedure visit or sooner if symptoms acutely worsen Plan Follow-up after endoscopy or sooner as needed Time: I spent a total of 50 minutes on the date of encounter which includes: Preparing to see the patient (reviewed previous documentation, test results and medical history) Performing a medically appropriate exam and/or evaluation Ordering medications, tests, and procedures Documenting clinical information in the health record Orders: Referrals GI Procedure Notification Elizabeth Arreola CNP D64.9 - Anemia, unspecified, K21.9 - Gastro-esophageal reflux disease without esophagitis, R19.5 - Other fecal abnormalities Medications: New peg 3350-electrolytes 236-22.74-6.74 -5.86 gram until fecal effluent is clear 240 mL PO ONCE 4,000 mL 0RF Elizabeth Sarpey, ELIGIBILITY TECHNICIAN bisacodyl take four tablets once day of colonoscopy prep 20 mg (4 x 5 mg) PO ONCE 4 tabs 0RF Elizabeth Sarpey, ELIGIBILITY TECHNICIAN simethicone (Gas Relief (simethicone)) per colonoscopy prep instructions 500 mg (4 x 125 mg) PO ONCE 4 caps 0RF abdominal distention Elizabeth Sarpey, ELIGIBILITY TECHNICIAN bisacodyl Take two tablets at bedtime, starting five nights before colonoscopy 10 mg (2 x 5 mg) PO BEDTIME 10 tabs 0RF Elizabeth Sarpey, ELIGIBILITY TECHNICIAN Changed From losartan 25 mg PO BID 180 tabs 2RF D64.9 - Anemia, unspecified To losartan 25 mg PO DAILY D64.9 - Anemia, unspecified Dorothy Pinto Po, Coding Level of Care Code New Pt New Pt Level 5 (74914) Patient Type New Diagnoses Positive colorectal cancer screening using Cologuard test R19.5 Anemia, unspecified type D64.9 Anemia type: unspecified type Gastroesophageal reflux disease, unspecified whether esophagitis present K21.9 Esophagitis presence: esophagitis presence not specified Constipation, unspecified constipation type K59.00 Constipation type: unspecified constipation type
== END 2025-09-07 09:21 | disposition home or self-care (01) ==
LOC: HO.HGI 08:16
PROVIDERS: PCP Internal Medicine; Visit Provider Nurse Practitioner Family
DX: Z01.818 Encounter for other preprocedural examination (principal); Z12.11 Encounter for screening for malignant neoplasm of colon; R19.5 Other fecal abnormalities; K59.00 Constipation, unspecified; D64.9 Anemia, unspecified; K21.9 Gastro-esophageal reflux disease without esophagitis
CPT/HCPCS: 99204

== ENCOUNTER → 2025-09-07 08:16 | Outpatient (BNVA) | payer OTHER, SELFPAY | PROVIDERS: PCP Internal Medicine; Visit Provider Nurse Practitioner Family | DX: Z12.11 Encounter for screening for malignant neoplasm of colon (principal); D64.9 Anemia, unspecified; K59.00 Constipation, unspecified; R19.5 Other fecal abnormalities; Z79.899 Other long term (current) drug therapy | CPT/HCPCS: 99202 ==